=== PATIENT | male | born 1985 | race African-American/Black ===

== ENCOUNTER 2016-10-13 20:42 | Emergency (ER) | payer OTHER ==
[~2016-10-13] VITALS: Ht 170.2 cm; Wt 70.0 kg
[2016-10-13 20:59] VITALS: BP 125/70; PULSE 64; TEMP 36.5; O2SAT 98; Ht 170.2 cm; Wt 70.0 kg
--- NOTE | 2016-10-13 21:43 | DIAGNOSTIC IMAGING REPORT ---
LEFT SHOULDER MIN 2 VIEWS ROUTINE CLINICAL HISTORY: Left shoulder pain status post trauma COMPARISON: None. DISCUSSION: There is widening of the coracoclavicular distance. There is superior offset of the distal clavicle with respect to the acromion. The findings are indicative of an AC joint separation. No fractures or dislocations the proximal humerus are visualized. IMPRESSION: 1. AC joint separation 2. No fractures or dislocations of the proximal humerus Electronically signed by: Jude Khan M.D. 10/13/2016 9:41 PM Dictated Date/Time: 10/13/2016 9:39 PM
[2016-10-13] MEDS ORDERED: KETOROLAC TROMETHAMINE 60 MG/2 ML VIAL IM STA (21:44)
--- NOTE | 2016-10-13 21:55 | EMERGENCY ROOM VISIT NOTE ---
ED Visit Note First contact with patient: 21:02 Chief Complaint: LEFT Shoulder History of Present Illness: Patient is a 31-year-old male who presents to the emergency department today with corrections officers present for evaluation of his LEFT shoulder injury. He reports that he ran into a door frame. He reports immediate pain to the anterior aspect of the LEFT shoulder. He denies any history of fracture or injury to the affected area. He denies any numbness or tingling into the distal extremities. He rates his current discomfort as a 7 /10. He was seen at the [facility] and brought to the emergency Department for further evaluation and management. He's had nothing for pain at this point. He denies any associated headaches, neck pain, elbow pain, wrist pain. Medications: No current medications. Allergies: No known allergies. PMH: No pertinent past medical history. SHx: Patient is a 31-year-old male who is incarcerated locally. ROS: All pertinent positive and negative review of systems are appropriately documented in the History of Present Illness. Physical Exam: VITAL SIGNS - Vital signs and nursing notes were reviewed. GENERAL - 31-year-old male appearing his stated age and in noticeable discomfort throughout the exam. NECK - FROM of the cervical spine. No spinous process or paraspinal muscle tenderness to palpation. No nuchal rigidity. LUNGS - Chest wall symmetric without accessory muscle use, intercostals retractions, or central cyanosis. Normal vesicular breath sounds CTA B/L. No wheezes, rales, or rhonchi appreciated. CARDIAC - RRR with S1/S2. No murmur, rubs, or gallops appreciated. MUSCULOSKELETAL - Active ROM of the LEFT shoulder was limited in all directions. 30 of abduction. No step-off deformities of the clavicle were palpable. Moderate tenderness over the AC joint with palpable elevation. No tenderness to palpation at the biapical insertion. No tenderness to palpation over the deltoid. NEUROLOGIC - SENSORY: Spinothalamic tract was found to be intact with ability to discriminate sharp versus dull sensation at the level of the LEFT side of the neck down to the fingertips. No sensory deficits of the dorsal column were appreciated utilizing light touch for evaluation. VASCULAR - Capillary refill was brisk. +3/5 radial pulse palpated. IMAGING: LEFT SHOULDER MIN 2 VIEWS ROUTINE CLINICAL HISTORY: Left shoulder pain status post trauma COMPARISON: None. DISCUSSION: There is widening of the coracoclavicular distance. There is superior offset of the distal clavicle with respect to the acromion. The findings are indicative of an AC joint separation. No fractures or dislocations the proximal humerus are visualized. IMPRESSION: 1. AC joint separation 2. No fractures or dislocations of the proximal humerus ED Course: Patient was seen and evaluated by myself. Patient was provided an ice pack for comfort. Patient was provided 60 mg Toradol for their complaint of pain. X-rays were obtained of the affected shoulder. Imaging results as above. Images were discussed and reviewed with the patient who acknowledges understanding. Patient was placed in an arm sling for comfort. He was encouraged to follow-up with orthopedic surgery from today's visit. He was educated on worrisome symptoms for return visit to the emergency department. Patient discharged home in good condition. In the evaluation and treatment of this patient, the following differential diagnoses were considered: Shoulder Contusion, Shoulder Fracture, Shoulder Dislocation, Thoracic Outlet Syndrome, Adhesive Capsulitis, Rotator Cuff Tear, Proximal Clavicle Head Fracture, Apical Pneumonia, Pneumothorax, Hemothorax, or TB. Impression: LEFT Shoulder AC Joint Separation Discharge Instructions: You have been treated in the Emergency Department for Shoulder Pain - LEFT AC Joint Separation. For pain control, you can use the following [id number] medicines (if >12 yo): - Regular strength (325mg/tab) Tylenol (acetaminophen) 2 tabs every 4-6 hours as needed. Do not exceed 12 tablets in a 24 hour period. Avoid taking more than 4 grams (4000 mg) of Tylenol per day. This includes any other sources of acetaminophen you may take on a regular basis. - Regular strength (200 mg/tab) Advil (ibuprofen) 1-2 tabs every 4-6 hours as needed. Do not exceed a dose of 3200 mg per day. If this is a recent injury (<24 hrs), ice can be applied to the area of pain for the first 3 days to help decrease pain and inflammation. You have been provided the number for an Orthopaedic Surgeon. You should call this number as soon as possible to establish a follow-up visit from today's Emergency Department visit. Keep the shoulder brace in place until evaluated by Orthopedics. Return to the Emergency Department if your current symptoms worsen despite treatment course outlined above, or if you develop any of the following symptoms : intractable pain despite aforementioned treatment course or new onset of numbness or tingling of the arm. Vital Signs Date Time Temp Pulse Resp B/P Pulse Ox O2 Delivery O2 Flow Rate FiO2 10/13/16 20:59 36.5 64 18 125/70 98 Room Air Medications Administered Medications (Trade) Dose Ordered Sig/Duy Route Start Time Stop Time Status Last Admin Dose Admin Ketorolac Tromethamine (Toradol Inj) 60 mg NOW STAT IM 10/13/16 21:44 10/13/16 21:45 DC 10/13/16 21:53 60 MG Departure Information Impression Primary Impression: Acromioclavicular joint separation Dispostion Home / Self-Care Condition GOOD Referrals Susan GUILLEN (PCP) Patient Instructions My [facility] Additional Instructions You have been treated in the Emergency Department for Shoulder Pain - LEFT AC Joint Separation. For pain control, you can use the following [id number] medicines (if >12 yo): - Regular strength (325mg/tab) Tylenol (acetaminophen) 2 tabs every 4-6 hours as needed. Do not exceed 12 tablets in a 24 hour period. Avoid taking more than 4 grams (4000 mg) of Tylenol per day. This includes any other sources of acetaminophen you may take on a regular basis. - Regular strength (200 mg/tab) Advil (ibuprofen) 1-2 tabs every 4-6 hours as needed. Do not exceed a dose of 3200 mg per day. If this is a recent injury (<24 hrs), ice can be applied to the area of pain for the first 3 days to help decrease pain and inflammation. You have been provided the number for an Orthopaedic Surgeon. You should call this number as soon as possible to establish a follow-up visit from today's Emergency Department visit. Keep the shoulder brace in place until evaluated by Orthopedics. Return to the Emergency Department if your current symptoms worsen despite treatment course outlined above, or if you develop any of the following symptoms : intractable pain despite aforementioned treatment course or new onset of numbness or tingling of the arm. Problem Qualifiers Primary Impression: Acromioclavicular joint separation Encounter type: initial encounter Laterality: left Qualified Codes: S43.102A - Unspecified dislocation of left acromioclavicular joint, initial encounter
== END 2016-10-13 21:59 | disposition home or self-care (01) ==
LOC: C.EDB 20:44 → C.EDD 21:59
DX: S43.102A Unspecified dislocation of left acromioclavicular joint, initial encounter (principal); X58.XXXA Exposure to other specified factors, initial encounter